=== PATIENT | male | born 1965 | race Caucasian/White ===

== ENCOUNTER 2020-10-28 09:21 | Inpatient (IN) | payer BC ==
[~2020-10-28] VITALS: Ht 182.9 cm; Wt 86.2 kg
[2020-10-28] VITALS (35 sets, daily range): BP systolic 108–200; BP diastolic 51–104
--- NOTE | ~2020-10-28 | HC ---
[facility] [place] [address] CONSULTATION Name: GIAN HULL Room #: 356-P ADM IN M.R.#: [id number] Admission: 10/28/20 Attend Phys: Eladio Malcolm MD Discharge: Date of : 61 Report #: [id number] THIS REPORT FOR: cc: Clementina Almaraz MD, Lisa MD Khosla,Navdeep Valdez MD ~ DOC #: [id number] Navdeep Khan MD DATE OF SERVICE: 10/28/2020 HISTORY OF PRESENT ILLNESS: This is a 54-year-old male patient, who was evaluated by me for headache. I talked to the Emergency Room physician and reviewed those notes. It looks like he has presented to the Emergency Room with headache, which was bifrontal, and he had syncope. As I understand from him, headache was continuous and he was pretty hypertensive. He initially did a CT scan of the head on him; and subsequently, he did a spinal tap on him. Spinal tap showed only 12 rbc's. He has done his CT chest on him with a dye; and therefore, he did not want to do the CT angiogram of the head and neck on the same day. I asked him to do an MRI and he did, and MRI is unremarkable. The patient says his headache is better, although his blood pressure continues to be uncontrolled. REVIEW OF SYSTEMS: He has hypertension. He is on antihypertensive. He stopped taking his antihypertensive suddenly. He did not take any medicines on the weekend. The record indicates that he has a history of coronary artery disease, hyperlipidemia, hypertension, peripheral vascular disease, bipolar depression, anxiety and tobacco abuse. He still continues to smoke. That was the relevant 14-point review of systems. PAST MEDICAL HISTORY: Positive for cardiac problem. FAMILY HISTORY: Unremarkable. SOCIAL HISTORY: He smokes. He says he drinks very rarely. PHYSICAL EXAMINATION: NEUROLOGIC: The patient's examination indicates he is alert and responsive. His speech, concentration, fund of knowledge and memory are at his baseline. Cranial nerve examination 2-12 looks mostly unremarkable. Neuromuscular examination is unremarkable. There is no meningeal sign. There is no carotid bruit. I could not look at the patient's fundus. CARDIORESPIRATORY: Cardiac examination is unremarkable. No respiratory difficulty was noticed. VITAL SIGNS: Blood pressure is 193/82, respirations 16, pulse is 68. LABORATORY DATA: Lab indicates a white count is normal. [facility] [address] [place] [address] CONSULTATION Name: GIAN HULL Room #: 356-P [facility] IN .R.#: [id number] Admission: 10/28/20 Attend Phys: Eladio Malcolm MD Discharge: Date of : 61 Report #: [id number] IMAGING STUDIES: MRI and MRA was reviewed, which is mostly unremarkable. ASSESSMENT AND PLAN: I suspect the most likely etiology for the patient's headache is uncontrolled hypertension. It is becoming better. I will suggest checking a sed rate. If his symptoms resolve and his blood pressure is controlled, I do not think we need to do any further workup. Otherwise, the only other thing we can do is an MRV. Thank you very much for this referral. Navdeep Khan MD PK/RAT By: 1711 0014 Navdeep Khan MD /nt
[2020-10-28 10:02] LABS: ABSOLUTE NEUTROPHILS 7.5 thou/uL (1.4-8.2); BASOPHILS 0.9 % (0.0-2.0); EOSINOPHILS 2.3 % (0.0-3.0); HEMATOCRIT 49.9 % (42.0-52.0); HEMOGLOBIN 16.9 gm/dL (14.0-18.0); LYMPHOCYTES 18.5 % (24.0-44.0); MCH 30.9 pg (26.0-34.0); MCHC 33.7 g/dL (28.0-37.0); MCV 91.7 fL (80.0-100.0); MONOCYTES 7.1 % (1.0-8.0); PLATELET COUNT 231 thou/uL (150-400); POLYS 71.2 % (36.0-66.0); RBC 5.45 mil/uL (4.50-6.00); WBC 10.5 thou/uL (4.0-11.0)
[2020-10-28 10:04] LABS: ANION GAP 15 mmol/L (7-16); BUN 18 mg/dL (7-18); CALCIUM 9.3 mg/dL (8.5-10.1); CHLORIDE 107 mmol/L (98-107); CO2 21 mmol/L (21-32); CREATININE 1.2 mg/dL (0.7-1.3); GLUCOSE 115 mg/dL (74-106); POTASSIUM 4.2 mmol/L (3.5-5.1); SODIUM 143 mmol/L (136-145)
[2020-10-28 10:14] LABS: ALBUMIN 4.2 g/dL (3.4-5.0); SGOT 34 U/L (15-37); SGPT 55 U/L (30-65); TOTAL BILIRUBIN 0.4 mg/dL (0.2-1.0); TOTAL PROTEIN 7.9 g/dL (6.4-8.2); TROPONIN-I <0.06 ng/mL (<0.06)
--- NOTE | 2020-10-28 12:35 | EKG ---
[address] [place] [address] ELECTROCARDIOGRAM REPORT Name: GIAN HULL [id number] Admission: 10/28/20 Attend Phys: Discharge: Date of : 61 Report #: [id number] [facility] ED Test Date: 2020-10-28 Test Time: 10:03:25 Pat Name: GIAN HULL Department: Room: Gender: M [employer] Operator: KAUR : 1965 Requested By: Donald Hudson Order Number: [id number] MD: Mik Cervantes Measurements Intervals [place] Rate: 63 P: 63 [place]: 153 QRS: 53 QRSD: 87 T: 49 QT: 422 QTc: 433 Interpretive Statements Sinus rhythm Ventricular premature complex Probable left atrial enlargement No previous ECG available for comparison Electronically Signed On 10-28-2020 12:34:57 CDT by Mik Cervantes [email or web address] <ELECTRONICALLY SIGNED> By: Mik Cervantes MD, [facility] 10/28/20 1234 1003 1003 Mik Cervantes MD, FACC /EPI
[2020-10-28 13:55] LABS: CSF GLUCOSE 64 mg/dL (40-70)
[2020-10-28 14:20] LABS: CSF CLARITY CLEAR; CSF COLOR COLORLESS; CSF RBC 12 /mm3; CSF WBC 1 /mm3 (0-10); VOLUME 4 ml
--- NOTE | 2020-10-28 18:20 | NUR ---
PATIENT ARRIVES FROM CCU AT 1805 WITH NURSING STAFF. CARDENE GTT 15MG/HR. PATIENT COMES IN WHEEL CHAIR WITH ALL BELONGINGS.
[2020-10-28] MEDS ORDERED: CHANTIX1 MG PO (18:40)
[2020-10-28] MEDS ORDERED: OLMESARTAN MEDO40 MG PO (18:43)
--- NOTE | 2020-10-28 18:44 | NUR ---
PT TO THE UNIT FROM THE ER. PT ORIENTED TO ROOM AND BEDSPACE. PT BLOOD PRESSURE CHARTED - DR TAVERA IN TO SEE PATIENT - PT AT MAX DOSAGE ON CARDENE WITH BLOOD PRESSURES IN THE 170-190 SYS. PT TRANSFERED TO THE ICU. PT MALATHI DIET AND FLUIDS. UP WITH ANA FORRESTER TO THE BATHROOM - CO'S OF HEADACHE PT TRANSFERED VIA WHEELCHAIR. REPORT CALLED TO ICU NURSE.
[2020-10-28] MEDS ORDERED: KAPSPARGO SPRIN25 MG PO (18:47)
[2020-10-28] MEDS ORDERED: CRESTOR40 MG PO (18:48)
[2020-10-28] MEDS ORDERED: HYDRALAZINE HC100 MG PO (18:48)
[2020-10-28] MEDS ORDERED: PROTONIX 20 MG20 MG PO (18:49)
[2020-10-28] MEDS ORDERED: VITAMIN D350 MCG PO (18:53)
[2020-10-28] MEDS ORDERED: LORAZEPAM 1 MG T1 MG PO (18:58)
[2020-10-28] MEDS ORDERED: ZYRTEC10 M5 PO (19:03)
[2020-10-28] MEDS ORDERED: ZOLOFT100 MG PO (19:03)
[2020-10-28] MEDS ORDERED: ZYPREXA 10 MG T10 MG PO (19:04)
[2020-10-28] MEDS ORDERED: TRAZODONE HCL100 MG PO (19:05)
[2020-10-28] MEDS ORDERED: ASA81BEC PO (19:05)
[2020-10-29] VITALS (14 sets, daily range): BP systolic 114–157; BP diastolic 55–86
--- NOTE | 2020-10-29 04:52 | NUR ---
REPORT CALLED TO AKHIL ON 3W. PT TRANSFERED UP TO ROOM 356. (ANNE MARIE) CALLED AND UPDATED ABOUT THE CHANGE IN ROOMS, ALL QUESTIONS ANSWERED AT THAT TIME.
[2020-10-29 04:59] LABS: ABSOLUTE NEUTROPHILS 5.6 thou/uL (1.4-8.2); BASOPHILS 1.4 % (0.0-2.0); EOSINOPHILS 2.7 % (0.0-3.0); LYMPHOCYTES 24.7 % (24.0-44.0); MCH 30.5 pg (26.0-34.0); MCV 92.3 fL (80.0-100.0); MONOCYTES 7.6 % (1.0-8.0); PLATELET COUNT 219 thou/uL (150-400); POLYS 63.6 % (36.0-66.0); RBC 4.87 mil/uL (4.50-6.00); RDW 14.1 % (10.5-14.5); WBC 8.7 thou/uL (4.0-11.0)
[2020-10-29 05:53] LABS: HEMOGLOBIN 14.9 gm/dL (14.0-18.0)
--- NOTE | 2020-10-29 05:53 | NUR ---
ASSUMED CARE OF PT FROM ICU AROUND 0440HRS. PT IS AOX4 AND LETS NEEDS BE KNOWN. FALL PRECAUTION IN PLACE. ASSESSMENT CHARTED. PT REPORTS SOME HEADACHE; PRN GIVEN. VSS AND NO S/S OF ACUTE DISTRESS. WILL CONTINUE TO MONITOR.
[2020-10-29 05:57] LABS: CALCIUM 8.9 mg/dL (8.5-10.1); CREATININE 1.1 mg/dL (0.7-1.3); MAGNESIUM 2.1 mg/dL (1.8-2.4); POTASSIUM 3.8 mmol/L (3.5-5.1)
[2020-10-29] MEDS ORDERED: BUTALB-APAP-CA1 EACH PO (14:41)
--- NOTE | 2020-10-29 17:26 | NUR ---
NURSING STAFF WAS GETTING PT DC'D, HE STARTED COMPLAINING OF DIZZY/NAUSEA AND URGE TO HAVE BM. PT WENT TO BATHROOM AND WAS UNSTABLE ON WAY BACK TO BED. DR Monteiro NOTIFIED. ODT ZOFRAN ADMINISTERED PT HAD IV AND TELE REMOVED. PT CONTINUED TO HAVE INCREASED HEADACHE FROM FOREHEAD TO LEFT SIDE. IV ACCESS RESTARTED. ORTHOSTATIC BP PERFORMED. HYDRALAZINE ADMINISTERED. NEURO PAGED/INFORMED. THIS RN INFORMED PT . PT RESTING IN BED WITH COOL RAG ON NECK AND EMESIS BUCKET FOR PT NEED. PER DR Monteiro, PT WILL STAY INPT.
[2020-10-30] VITALS (9 sets, daily range): BP systolic 145–165; BP diastolic 75–86
--- NOTE | 2020-10-30 05:35 | NUR ---
PT MAKING PROGRESS TOWARDS GOALS. C/O HEADACHE ONCE, FULLY RESOLVED WITH SINGLE DOSE OF FIORECET. THIS AM, PT WAS SLOW TO WAKE UP UPON APPROACH. PT INITIALLY SLOW TO ANSWER QUESTIONS BUT DID SO APPROPRIATELY AFTER SEVERAL MINIUTES. NIH PERFORMED PRECAUTION BUT ONLY ABNORMALITY FOUND WAS DROWSY. GAIT WAS STEADY WHEN OOB.
[2020-10-30 09:33] LABS: CALCIUM 9.3 mg/dL (8.5-10.1); CREATININE 1.2 mg/dL (0.7-1.3); POTASSIUM 4.2 mmol/L (3.5-5.1)
[2020-10-30 09:40] LABS: AMP/METHAMP Negative (Negative); BARBITURATES POSITIVE (Negative); BENZODIAZEPINES POSITIVE (Negative); COCAINE Negative (Negative); METHADONE Negative (Negative); OPIATES POSITIVE (Negative); PCP Negative (Negative)
--- NOTE | 2020-10-30 11:52 | NUR ---
INITIAL ASSESSMENT: SW reviewed chart and spoke with nursing and attending physician. Pt was admitted from home due to headache/HTN emergency. Neuro and cardiology consulted. Pt may discharge home later today. SW met with pt at bedside. Introduced role of SW. Pt is alert/orientated x 4. Pt reports he lives at home with his family. Prior to admission, pt was independent with ADLs. No use of DME. No hx of services or post-acute placement. Pt's PCP is Dr. Clementina Almaraz. Pt will have transportation home when discharged. Pt states he is not sure when he will d/c home. No SW needs identified at this time. SW is available to assist should needs arise.
--- NOTE | 2020-10-30 11:56 | NUR ---
ASSUMED PT CARE AT SHIFT CHANGE, PT COMPLAINTS OF HEADACHE AND NAUSEA. PRN MEDICAITON ADMINISTERED. EDUCATED PT ON NEW MEDICATION AND DISCUSSED POC/GOALS FOR THE DAY. PT IN ROOM UNTIL SHE WENT TO WORK.
== END 2020-10-30 18:17 | disposition home or self-care (01) | DRG 305 ==
LOC: ER 09:21 → EROBS 15:05 → 3W 15:05 → 2N 15:05 → ICU 15:05 → 2N 15:40 → ICU 17:41 → 3W 10-29 04:46
PROVIDERS: Emergency Medicine; Nurse Practitioner; Nurse Practitioner Adult Health; ADMIT Internal Medicine; ATTEND Internal Medicine
PROC: 009U3ZX Drainage of Spinal Canal, Percutaneous Approach, Diagnostic (ICD-10-PCS; principal; 2020-10-28)
DX: I16.1 Hypertensive emergency (principal); I10 Essential (primary) hypertension; E78.5 Hyperlipidemia, unspecified; I25.10 Atherosclerotic heart disease of native coronary artery without angina pectoris; F17.210 Nicotine dependence, cigarettes, uncomplicated; I73.9 Peripheral vascular disease, unspecified; F31.9 Bipolar disorder, unspecified; F41.9 Anxiety disorder, unspecified; E78.00 Pure hypercholesterolemia, unspecified; Z71.6 Tobacco abuse counseling; Z88.8 Allergy status to other drugs, medicaments and biological substances; Z95.5 Presence of coronary angioplasty implant and graft; Z95.820 Peripheral vascular angioplasty status with implants and grafts
CPT/HCPCS: 10078; 10879